=== PATIENT | male | born 1995 ===

== ENCOUNTER 2021-05-28 12:08 | Emergency (ER) | payer SELFPAY ==
[2021-05-28 13:29] VITALS: BP 138/77
--- NOTE | 2021-05-28 15:29 | Emergency Department Report ---
Chief Complaint: Extremity Injury, Lower Stated Complaint: PAIN IN HEEL OF FOOT Time Seen by Provider: 05/28/21 15:23 - HPI History of Present Illness: The patient was evaluated in the emergency department for symptoms described in the history of present illness. He/she was evaluated in the context of the global COVID-19 pandemic, which necessitated consideration that the patient might be at risk for infection with the virus that causes COVID-19. Institutional protocols and algorithms that pertain to the evaluation of patients at risk for COVID-19 are in a state of rapid change based on information released by regulatory bodies including the CDC and federal and state organizations. These policies and algorithms were followed during the patient's care in the emergency department. Please note that these policies, procedures and recommendations changed on a rapid basis. 25-year-old -[place] male presents to the emergency room complaining of intermittent chronic right heel pain. 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 Patient states that had aggravated his right heel that he has had injury many years ago. Patient states that his job requesting a return to work clearance note for his right heel pain. Patient denies any pain at this time and states it only comes when he stands for long period of time. Patient denies any recent injury. He denies any swelling. Denies any pain at this time. - Exam Vital Signs: Vital Signs 05/28/21 13:28 Temperature 98.1 F Pulse Rate 63 Respiratory 20 Rate Blood Pressure 138/77 O2 Sat by Pulse 100 Oximetry Physical Exam: Patient is alert oriented x3 no acute distress nontoxic in appearance Patient has effortless breath Regular rate Right lower extremity full range of motion no swelling appreciated pulses are intact no heel pain with squeeze or flexion or extension. Patient is ambulatory without difficulties. MSE screening note: Focused history and physical exam performed. Due to findings the following was ordered: 25-year-old -[place] male presents to the emergency room complaining of intermittent chronic right heel pain. 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 Patient states that had aggravated his right heel that he has had injury many years ago. Patient states that his job requesting a return to work clearance note for his right heel pain. Patient denies any pain at this time and states it only comes when he stands for long period of time. Patient denies any recent injury. He denies any swelling. Denies any pain at this time. Eddi with patient he can take Tylenol or ibuprofen for pain. Discussed with patient I will refer him to outpatient clinic. Patient was given a release to work note. ED Disposition for MSE Clinical Impression: Chronic pain of right heel Disposition: HOME / SELF CARE / HOMELESS Is pt being admited?: No Does the pt Need Aspirin: No Condition: Stable Instructions: Pain Medicine Instructions, [id number] Additional Instructions: Recommend to follow up with a primary car provider or orthopedics. Referrals: [facility] [Provider Group] - 3-5 Days Forms: Work/School Release Form(ED)
== END 2021-05-28 15:26 | disposition home or self-care (01) ==
LOC: ED 12:08
DX: M79.671 Pain in right foot (principal)
CPT/HCPCS: 99281